=== PATIENT | male | born 1955 | race Caucasian/White ===

== ENCOUNTER 2020-09-12 19:15 | Inpatient (IN) | payer OTHER, MEDICARE ==
[~2020-09-12] VITALS: Ht 170.2 cm; Wt 86.9 kg
[2020-09-12] MEDS ORDERED: AMLO10 PO (19:36)
[2020-09-12] MEDS ORDERED: CYAN500 PO (19:36)
[2020-09-12] MEDS ORDERED: ATORVASTATIN CA40 M1 PO (19:36)
[2020-09-12] MEDS ORDERED: OMEP20ER PO (19:37)
[2020-09-12] MEDS ORDERED: GABA100 PO (19:37)
[2020-09-12] MEDS ORDERED: LISI20 PO (19:37)
[2020-09-13] MEDS ORDERED: ASPI81CH (00:10)
--- NOTE | 2020-09-13 00:39 | NUR ---
PT ARRIVED TO FLOOR FROM ER. PT A/O, VSS. PT W/HX COPD, HAS DRY NON PROD COUGH, LUNGS DIM, PT DENIES SOB. PT REP PAIN IN RUQ ABD X3 DAYS, DENIES N/V. PT REP PAIN JAGDEEP 3-10 AT THIS TIME. PT EDUCATED ON NPO STATUS FOR PLAN FOR SURGERY TODAY. PT ORIENTED TO ROOM/CALL LIGHT.
--- NOTE | 2020-09-13 06:34 | NUR ---
PT NEW ADMIT THIS SHIFT FOR BENSON. PT VSS. PT REP PAIN JAGDEEP 3-02/25, DECLINED NEED FOR PAIN MEDS. PT HAD NO C/O N/V. PT UP INDEP IN ROOM, JAGDEEP WELL. PT NPO FOR PLAN FOR SURGERY TODAY; IVF CONT PER ORDERS.
--- NOTE | 2020-09-13 10:48 | NUR ---
PT TESTED NEGATIVE FOR COVID 19 AT THE [place] BEFORE ADMISSION TO [facility]. PAPERWORK FROM THE [place] FAXED TO [facility]. DR. DANIEL IS AWARE.
--- NOTE | 2020-09-13 12:33 | NUR ---
PT TO OR AT ABOUT 1210
--- NOTE | 2020-09-13 17:37 | NUR ---
REPORT RECEIVED FROM PLASTIC STRAIGHTENING ROLL OPERATOR DAVE.
--- NOTE | 2020-09-13 19:33 | NUR ---
POST OP: PT BACK TO UNIT AT ABOUT 1750. UPON ASSESSMENT PT IS DROWSY, AWAKENS TO VOICE AND FOLLOWS COMMANDS. PT SPO2 87% ON 5L NC, PT SAT UP RIGHT AND DEEP BREATHING ENCOURAGED. RT NOTIFIED, AND THERAPIST IN ROOM AT ABOUT 1800. PT PUT ON 8L OXIMIZER AND SATS INCREASED TO 93%. WILL CTM. ALL OTHER VSS. SURGICAL SITES WNL. GLOVE TURNER AND FORMER AUTOMATIC MARIA, ALSO MADE AWARE OF PT STATUS. PT DAUGHTER CALLED WITH POST OP UPDATE. REPORT GIVEN TO NOC DIOR CORRALES.
[2020-09-14 04:29] LABS: BASOPHILS ABSOLUTE AUTO 0.01 K/mm3 (0.00-0.23); BASOPHILS PERCENT AUTO 0 % (0-2); EOSINOPHILS PERCENT AUTO 0 % (0-6); Hematocrit 36.5 % (37.0-53.0); Hemoglobin 12.1 g/dL (13.5-17.5); IMMATURE GRAN ABSOLUTE AUTO 0.03 K/mm3 (0.00-0.10); IMMATURE GRAN PERCENT AUTO 0 % (0-1); LYMPHOCYTES ABSOLUTE AUTO 0.56 K/mm3 (0.84-5.20); LYMPHOCYTES PERCENT AUTO 6 % (21-46); MONOCYTES ABSOLUTE AUTO 1.33 K/mm3 (0.16-1.47); MONOCYTES PERCENT AUTO 13 % (4-13); Mean Corpuscular HGB 38.1 pg (26.0-34.0); Mean Corpuscular HGB Conc 33.2 g/dL (31.5-36.5); Mean Corpuscular Volume 115 fL (80-100); Mean Platelet Volume 10.8 fL (9.1-12.4); NEUTROPHILS ABSOLUTE AUTO 8.01 K/mm3 (1.96-9.15); NEUTROPHILS PERCENT AUTO 81 % (41-73); Platelet Count 137 K/mm3 (150-400); RDW Coefficient Variation 15.4 % (11.7-14.2); RDW Standard Deviation 65.7 fL (35.1-46.3); Red Blood Cell Count 3.18 M/mm3 (4.30-5.90); White Blood Cell Count 9.94 K/mm3 (4.00-11.30)
[2020-09-14 04:50] LABS: Anion Gap 8 mmol/L (6-16); Blood Urea Nitrogen 8 mg/dL (8-24); Bun/Creatinine Ratio 11.8 (12.0-20.0); CO2, Blood 24 mmol/L (21-32); Calcium, Blood 8.6 mg/dL (8.5-10.1); Chloride, Blood 106 mmol/L (98-108); Creatinine, Blood 0.68 mg/dL (0.60-1.20); Glomerular Filtration Rate >60 (60-); Glucose, Blood 129 mg/dL (70-99); Potassium, Blood 4.3 mmol/L (3.5-5.5); Sodium, Blood 138 mmol/L (136-145)
--- NOTE | 2020-09-14 06:38 | NUR ---
POD 1 S/P LAP BENSON. PT VSS T/O NIGHT, O21 TITRATED DOWN TO 3LNC. PT CONT TO HAVE OCC PROD COUGH, IS USING I/S AT BEDSIDE. STERI STRIPS CDI. DANILO PUT OUT 50ML SS DRNG. BT REMAIN HYPO, PT JAGDEEP CL PO, REP NO FLATUS YET. PT IS VOIDING URINE W/O DIFFICULTY. IVF CONT PER ORDERS. PAIN MGD W/1 NORCO W/REP RELIEF.
--- NOTE | 2020-09-14 17:00 | NUR ---
SHIFT SUMMARY LAP BENSON POD1, A/O X4, VSS ON 3L 02, INDEPENDENT IN ROOM, VOIDING WELL, PASSING FLATUS, ON CLEAR LIQUIDS, PAIN CONTROLLED PER EMAR. DAUGHTER AT BEDSIDE, ENC TCDB, EDU TO GUARD ABD WHEN COUGHING/SNEEZING. CALL LIGHT IN REACH, WILL CONTINUE TO MONITOR AND REPORT TO ONCOMING NOC RN.
[2020-09-15 04:10] LABS: BASOPHILS ABSOLUTE AUTO 0.05 K/mm3 (0.00-0.23); BASOPHILS PERCENT AUTO 1 % (0-2); EOSINOPHILS ABSOLUTE AUTO 0.15 K/mm3 (0.00-0.68); EOSINOPHILS PERCENT AUTO 2 % (0-6); Hematocrit 39.4 % (37.0-53.0); Hemoglobin 13.3 g/dL (13.5-17.5); IMMATURE GRAN ABSOLUTE AUTO 0.04 K/mm3 (0.00-0.10); IMMATURE GRAN PERCENT AUTO 0 % (0-1); LYMPHOCYTES ABSOLUTE AUTO 1.14 K/mm3 (0.84-5.20); LYMPHOCYTES PERCENT AUTO 12 % (21-46); MONOCYTES ABSOLUTE AUTO 0.89 K/mm3 (0.16-1.47); MONOCYTES PERCENT AUTO 9 % (4-13); Mean Corpuscular HGB Conc 33.8 g/dL (31.5-36.5); Mean Corpuscular Volume 113 fL (80-100); Mean Platelet Volume 10.4 fL (9.1-12.4); NEUTROPHILS PERCENT AUTO 76 % (41-73); Platelet Count 155 K/mm3 (150-400); RDW Coefficient Variation 15.7 % (11.7-14.2); RDW Standard Deviation 66.1 fL (35.1-46.3); White Blood Cell Count 9.47 K/mm3 (4.00-11.30)
[2020-09-15 04:29] LABS: Anion Gap 7 mmol/L (6-16); Blood Urea Nitrogen 9 mg/dL (8-24); Bun/Creatinine Ratio 12.8 (12.0-20.0); CO2, Blood 25 mmol/L (21-32); Calcium, Blood 8.7 mg/dL (8.5-10.1); Chloride, Blood 103 mmol/L (98-108); Glomerular Filtration Rate >60 (60-); Glucose, Blood 103 mg/dL (70-99); Potassium, Blood 3.9 mmol/L (3.5-5.5); Sodium, Blood 135 mmol/L (136-145)
--- NOTE | 2020-09-15 04:43 | NUR ---
SHIFT SUMMARY POD#2. AAOX4. DISCOMFORT CONTROLLED WITH 1 NORCO X2 THIS SHIFT. NO NAUSEA/EMESIS. ABD INCISIONS WITH SCANT SS DRY DRAINAGE, NO CHANGE THIS SHIFT. DANILO SECURE WITH MODERATE AMOUNT SS DRAINAGE. GOOD PO INTAKE + OUTPUT. PT REPORTING LARGE AMOUNTS OF FLATUS, NO BM POST OP. LUNG SOUND DIMINISHED T/O, 1L VIA NC. ENCOURAGE INCENTIVE SPIROMETRY + COUGH/DEEP BREATHING WITH ABD SPLINTING. NO ACUTE CHANGES OVER NIGHT. PT RESTING WELL IN BED WITH CALL LIGHT IN REACH.
[2020-09-15] MEDS ORDERED: HYDR1TAB94 PO (14:06)
[2020-09-15] MEDS ORDERED: MIRALAX17 GM PO (14:07)
--- NOTE | 2020-09-15 16:10 | NUR ---
DISCHARGE SUMMARY TOLERATING PO, PASSING FLATUS, AMBULATING INDEPENDENTLY, PAIN WELL CONTROLLED. IV DC'D W/ NO OTHER IV ACCESS DEVICES IN PLACE, POST OP EDUCATION PROVIDED AND DISCUSSED W/ PT AND FAMILY, FOLLOW UP INFORMATION GIVEN, MEDICATION CHANGES DISCUSSED W/ PT. FOLLOW UP INFORMATION PROVIDED, PT DAUGHTER STATES [place] WILL HAVE TO AUTHORIZE IT FIRST. PT A/O, NEITHER PT OR HIS FAMILY HAD ANY QUESTIONS. PT ESCORTED OUT VIA W/C W/O COMPLAINT.
== END 2020-09-15 15:45 | disposition home or self-care (01) | DRG 419 ==
LOC: ER 19:15 → SURS 22:07
PROVIDERS: ADMIT Surgery
PROC: 0FT44ZZ Resection of Gallbladder, Percutaneous Endoscopic Approach (ICD-10-PCS; principal; 2020-09-13 12:45)
DX: K80.00 Calculus of gallbladder with acute cholecystitis without obstruction (principal); K52.9 Noninfective gastroenteritis and colitis, unspecified; M06.9 Rheumatoid arthritis, unspecified; I10 Essential (primary) hypertension; E78.00 Pure hypercholesterolemia, unspecified; J44.9 Chronic obstructive pulmonary disease, unspecified; M32.9 Systemic lupus erythematosus, unspecified; F17.210 Nicotine dependence, cigarettes, uncomplicated; Z79.82 Long term (current) use of aspirin; Z88.0 Allergy status to penicillin
CPT/HCPCS: 36415; 71046; 80048; 83605; 83690; 85025; 88304; 93005; 93010; 96361-59; 96365-59; 96375-59; 96376; 99285-25; A9270-GY; J0744; J1100; J1170; J2250; J2270; J2370; J2405; J2704; J3010; J7120